=== PATIENT | female | born 1975 | race Caucasian/White ===

== ENCOUNTER 2017-02-19 14:56 | Emergency (ER) | payer SELFPAY ==
[2017-02-19 15:32] LABS: #Basophils 0.1 thou/uL (0.0-0.2); #Eosinphils 0.2 thou/uL (0.0-0.7); #Monocytes 0.5 thou/uL (0.11-0.59); %Basophils 0.9 % (0.0-1.0); %Eosinophils 2.6 % (0.0-10.0); %Lymphocytes 23.1 % (21.0-51.0); %Monocytes 5.9 % (0.0-10.0); Hematocrit 42.2 % (36.0-47.0); Mean Platelet Volume 7.3 fL (7.4-10.4); White Blood Cell (WBC) Count 8.8 thou/uL (4.8-10.8)
[2017-02-19] MEDS ORDERED: diphenhydrAMINE 50 MG/ML VIAL ONE (15:35)
[2017-02-19 15:54] LABS: ALT (SGPT) 58 U/L (8-55); AST (SGOT) 82 U/L (5-34); Alkaline Phosphatase 82 U/L (40-150); Anion Gap 13 mmol/L (10-20); BUN (Urea Nitrogen) 12 mg/dL (7.0-18.7); Bilirubin, Total Less than 0.2 mg/dL (0.2-1.2); Calc. Creatinine Clearance 0 mL/min (70-130); Calcium 9.3 mg/dL (7.8-10.44); Carbon Dioxide 22 mmol/L (22-29); Chloride 106 mmol/L (98-107); Estimated GFR-MDRD Greater than 90; Globulin 3.3 g/dL (2.4-3.5); Protein, Total 7.2 g/dL (6.0-8.3)
[2017-02-19] MEDS ORDERED: Metoclopramide HCl 10 MG/2 ML VIAL ONE (16:05)
--- NOTE | 2017-02-19 16:40 | CT ---
CT HEAD NONCONTRAST 02/19/17 HISTORY: Headache. Numbness. FINDINGS: There is no evidence of acute intracranial hemorrhage or infarct. Within the posterior body of the le ft lateral ventricle on axial image #17 is a rounded hyperdense focus measuring up to 0.9 cm greatest diameter. No symmetric lesion is apparent on the other side. There is no significant mass effect or shift of midline structures. IMPRESSION: Small hyperdense mass-like lesion within the left lateral ventricle, as detailed above. Please consid er nonemergent MRI brain, with and without gadolinium for better characterization. POS: LUCERO
[2017-02-19] MEDS ORDERED: Morphine 4 MG/ML VIAL ONE (16:46)
[2017-02-19 16:48] LABS: Troponin I Less than 0.010 ng/mL (< 0.028)
--- NOTE | 2017-02-19 17:18 | PDOC.EVN ---
Event Note - Event Note Event Note: Went to ER to assess patient. Discussed with neurosurgery service. They assessed and discussed with the patient. Patient is being discharged home, I did not assess the patient.
== END 2017-02-19 17:30 | disposition home or self-care (01) ==
LOC: ERS 14:56
DX: R51 Headache (principal); F17.210 Nicotine dependence, cigarettes, uncomplicated
CPT/HCPCS: 70450; 80053; 82553; 84484; 84703; 85025; 93005; 96374; 96375; J1200; J2270; J2765

== ENCOUNTER 2017-02-25 14:38 | Observation (INO) | payer OTHER, SELFPAY ==
[2017-02-25] MEDS ORDERED: Metoclopramide HCl 10 MG/2 ML VIAL ONE (17:14)
[2017-02-25] MEDS ORDERED: diphenhydrAMINE 50 MG/ML VIAL ONE (17:14)
[2017-02-25 17:23] LABS: #Basophils 0.1 thou/uL (0.0-0.2); #Eosinphils 0.2 thou/uL (0.0-0.7); #Lymphocytes 2.7 thou/uL (1.20-3.40); #Monocytes 0.6 thou/uL (0.11-0.59); #Neutrophils 6.2 thou/uL (1.40-6.50); %Basophils 0.6 % (0.0-1.0); %Eosinophils 2.3 % (0.0-10.0); %Lymphocytes 27.9 % (21.0-51.0); %Monocytes 6.1 % (0.0-10.0); Mean Platelet Volume 7.2 fL (7.4-10.4); Red Blood Cell (RBC) Count 4.12 mill/uL (4.20-5.40); White Blood Cell (WBC) Count 9.8 thou/uL (4.8-10.8)
[2017-02-25 17:30] LABS: PTT 31.7 SEC (22.9-36.1); Prothrombin Time 12.5 SEC (12.0-14.7)
[2017-02-25 17:43] LABS: Anion Gap 10 mmol/L (10-20); BUN (Urea Nitrogen) 19 mg/dL (7.0-18.7); Calc. Creatinine Clearance 0 mL/min (70-130); Calcium 9.1 mg/dL (7.8-10.44); Carbon Dioxide 24 mmol/L (22-29); Chloride 107 mmol/L (98-107); Estimated GFR-MDRD Greater than 90
[2017-02-25 17:50] LABS: Troponin I Less than 0.010 ng/mL (< 0.028)
--- NOTE | 2017-02-25 18:15 | CT ---
EXAM: NONCONTRAST HEAD CT 02/25/17 COMPARISON: 02/19/17 HISTORY: Headache. TECHNIQUE: Noncontrast head CT is performed from skull base through skull vertex. FINDINGS: No parenchymal hemorrhage. No extra-axial hematoma. No midline shift. Basilar cisterns are patent. Brain volume, age appropriate. Cortical archer-white matter differentiation is preserved. Ventricles and sulci are patent and symmetric. Stable hyperdensity in the left lateral ventricle, jeromy suring approximately 8 mm. No midline shift. Basilar cisterns are patent. Adequate aeration of the sinuses and mastoid air cells . Intact calvarium. IMPRESSION: Redemonstration of a hyperdense mass in the left lateral ventricle. Further interrogation with noneme rgent brain MRI is recommended. POS: LUCERO
[2017-02-25 22:09] LABS: Troponin I Less than 0.010 ng/mL (< 0.028)
--- NOTE | 2017-02-26 00:22 | CON ---
DATE OF CONSULTATION: 02/25/2017 HISTORY OF PRESENT ILLNESS: Ms. Purcell is a 41-year-old female who has a history of headaches and dizziness since 02/19/2017. She complains of passing out when going from sitting to standing position. is at bedside and reports multiple syncopal episodes in that fashion. She reports loss of consciousness x1 on 02/19/2017. Patient is a poor historian. Today, she presents with a headache that is dull and throbbing in nature. Symptoms are about the same since 02/19/2017. Neurosurgery was consulted because a CT was done on her brain that showed a left lateral ventricle lesion approximately [address] of the brain was also done on 02/19/2017 that showed the same lesion and is stable today. ALLERGIES: No known drug allergies. CURRENT MEDICATIONS: None. PAST MEDICAL HISTORY: No past medical history. PAST SURGICAL HISTORY: section x2. PSYCHIATRIC HISTORY: No previous psychiatric history. SOCIAL HISTORY: Patient drinks socially. Currently uses tobacco. Smokes 1 pack of cigarettes per day for the last 20 years. She currently abuses marijuana and infrequent drug use. REVIEW OF SYSTEMS: Eyes: The patient reports vision changes in the past week. She complains of blurry vision. Neurologic: She reports dizziness and headache. A 12-point review of system was completed and is otherwise negative unless stated in the above HPI. PHYSICAL EXAMINATION: VITAL SIGNS: Reviewed and stable. She is afebrile, slightly hypertensive. GENERAL: The patient appears nontoxic, is alert and oriented x4. GCS was 15 and appears stated age. HEENT: Head, normocephalic, atraumatic. Hearing intact. Moist mucous membranes. Trachea is midline. Eyes, pupils are equal and reactive to light. Extraocular muscles are intact. Sclerae are white, nonicteric. NECK: Normal range of motion. Trachea is midline. RESPIRATORY: The patient has bilateral symmetric chest rise, appears to have no shortness of breath. CARDIOVASCULAR: The patient has regular rate and rhythm. BACK: No distal cyanosis or clubbing noted. EXTREMITIES: Upper extremity, normal range of motion and normal motor strength. Lower extremity, normal range of motion and normal motor strength. NEUROLOGIC: Cranial nerves II through XII are grossly intact. Speech is fluent. She answers my questions appropriately. There are no focal motor or sensory deficits. Jay coma scale 15. Speech is clear and appropriate. PSYCHIATRIC: Normal affect, judgment is normal. ASSESSMENT: Ms. Maxine Purcell is a 41-year-old female who presents today with worsening headache and stable left lateral ventricle lesion approximately 8 mm in diameter. PLAN: Dr. Mosley and I have reviewed the history and images of Maxien Purcell. CT scan was reviewed and determined that the mass is not causing syncope. We will evaluate her outpatient in clinic for the left lateral ventricle mass. If there are any further questions or worsening neurologic condition while she is here in the hospital, please feel free to call. We will let the our colleagues on the medicine team do workup for syncopal episode and headache. RAMEZ
[2017-02-26] MEDS ORDERED: Acetaminophen 325 MG TAB PO PRN ×2 (00:30→01:04)
[2017-02-26] MEDS ORDERED: Ondansetron ODT 4 MG TAB SL PRN (00:30)
[2017-02-26] MEDS ORDERED: Ondansetron HCl/PF 4 MG/2 ML Vial IVP PRN ×2 (00:30→01:04)
[2017-02-26 01:01] LABS: Troponin I 0.013 ng/mL (< 0.028)
[2017-02-26] MEDS ORDERED: Sodium Chloride 0.9% 1,000 ML IV SCH (01:04)
[2017-02-26] MEDS ORDERED: HYDROcodone/Acetaminophen 10/325 mg Tablet PO PRN (01:04)
[2017-02-26] MEDS ORDERED: HYDROcodone/Acetaminophen 5/325 mg Tablet PO PRN (01:04)
[2017-02-26 01:53] VITALS: BMI 29.4
--- NOTE | 2017-02-26 05:54 | HP ---
PRIMARY CARE PHYSICIAN: None. CHIEF COMPLAINT: Headache and syncope. HISTORY OF PRESENT ILLNESS: Ms. Purcell is a 41-year-old white female with negative history, who presents to the ER the second time in a week. She was here one week ago for headaches and dizziness and some blurry vision. She had a CT scan here that showed a nonobstructing lateral ventricular cystic-type mass and she was arranged for outpatient followup. She continued to have bifrontal headache. She describes a band-like sensation over the front of her head, rated 10/10. She states that she feels dizzy in the sense that everything is spinning around her and still seems like she just cannot focus. She denies any double vision. The patient presented to the emergency department now after 6 days of her headache. No fevers or chills. No chest pain, cough, or shortness of breath. No nausea or vomiting. She had a repeat CT scan done today with noncontrast that showed the hypodense lesion in the left lateral ventricle to be stable. Neurosurgery was consulted and recommended placing on observation, getting an MRI, and Neurology was contacted. She states that she has had several spells over the last week where she has become unresponsive. She denies any bowel or bladder incontinence and no tongue biting until today. People that have witnessed her spells state there is no tonic clonic or jerking activity. She has no recollection of these events. PAST MEDICAL HISTORY: Brain mass as above. PAST SURGICAL HISTORY: Includes x2 remotely. HOME MEDICATIONS: None. ALLERGIES: NKDA. FAMILY HISTORY: Negative for clotting or bleeding disorder. No immune dysfunction, no cancer. SOCIAL HISTORY: There is a history of rare alcohol. She does smoke marijuana, the last time was a few months ago. Denies any IV drug use. She does smoke tobacco about 1 pack per day for the last 20 years. REVIEW OF SYSTEMS: A 10-point review of systems was performed, negative for all other systems except stated as per HPI. PHYSICAL EXAMINATION: VITAL SIGNS: Temperature is 97.7, pulse 71, blood pressure 159/90, respiratory rate 18, O2 sat 97% on room air. GENERAL: She is awake. She is alert. She is oriented x3. She is in no acute distress. She was initially sleeping comfortably and very, very hard and was difficult initially to arouse but was oriented x3 on arousal. HEENT: Normocephalic, atraumatic. Pupils equal and reactive bilaterally, mucosa is moist. There is no visible lesion, no thrush. She has a good conjugate gaze. NECK: Supple with no lymphadenopathy, JVD, or thyromegaly. LUNGS: Clear to auscultation bilaterally. No wheezing, no rales, no rhonchi. CARDIOVASCULAR: Normal S1 and S2. No S3 or S4. She has normal rate and regular rhythm. She has no audible murmur. ABDOMEN: Soft, nontender, nondistended. She has no masses, no organomegaly. EXTREMITIES: Show no cyanosis, no clubbing, no edema. SKIN: Warm, moist, with well perfused without any rashes or lesions. NEUROLOGIC: She had cranial nerves II through XII are grossly intact. She has no focal neurologic deficits. She has normal speech pattern and 5/5 strength. The sensation is intact. LABORATORY DATA: BMP is normal. Troponin I was negative. CKMB was 1.7. test was negative. INR is 0.9. CBC showed a white count of 9.8, hemoglobin 13.1, hematocrit of 39.0, platelets 298,000. RADIOGRAPHIC STUDIES: A CT of the brain as above. ASSESSMENT AND PLAN: 1. Syncopal episodes: Cardiogenic versus neurologic: We will place on the stroke unit, we will monitor on telemetry, we will follow up on Neurosurgery and Neurology recommendations. I have ordered an MRI with contrast to be done to better delineate her mass. 2. Brain mass: As above. Neurosurgery is seen and is following. 3. Headache: Symptomatic control. She did have some nausea that responded well to Reglan. We will continue Reglan and Zofran. [facility]
[2017-02-26 08:12] LABS: #Eosinphils 0.3 thou/uL (0.0-0.7); #Monocytes 0.6 thou/uL (0.11-0.59); #Neutrophils 4.1 thou/uL (1.40-6.50); %Basophils 0.5 % (0.0-1.0); %Eosinophils 3.7 % (0.0-10.0); %Monocytes 6.9 % (0.0-10.0); Hematocrit 38.9 % (36.0-47.0); Mean Platelet Volume 7.2 fL (7.4-10.4); Red Blood Cell (RBC) Count 4.08 mill/uL (4.20-5.40)
[2017-02-26 08:34] LABS: Anion Gap 10 mmol/L (10-20); BUN (Urea Nitrogen) 17 mg/dL (7.0-18.7); Calc. Creatinine Clearance 151 mL/min (70-130); Calcium 8.5 mg/dL (7.8-10.44); Carbon Dioxide 22 mmol/L (22-29); Chloride 111 mmol/L (98-107); Cholesterol 126 mg/dl (< 200 Desired); Estimated GFR-MDRD Greater than 90; LDL Cholesterol, Calculated 73 mg/dL
[2017-02-26] MEDS ORDERED: Famotidine 20 MG TAB PO SCH (09:00)
--- NOTE | 2017-02-26 09:20 | CON ---
DATE OF CONSULTATION: 02/26/2017 CONSULTING PHYSICIAN: Hospitalist service. IMPRESSION: 1. Persistent headache for the last week preceded by a syncopal episode likely secondary to migraine . 2. Past history of some orthostatic dizziness. 3. 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 PLAN: 1. MRI of the brain. 2. Migraine protocol. HISTORY OF PRESENT ILLNESS: Ms. Purcell is a 41-year-old white female who reports that she develop ed a bad headache last week. She had a brief syncopal episode while at home. She came to the emerge ncy room at that time and was evaluated. She was discharged home. She was noted to have a ventricul ar mass and was referred to Neurosurgery for evaluation. Neurosurgery felt that this issue was nonem ergent and not related to a syncopal episode. There is no evidence of intracerebral hemorrhage. Her vital signs did not show any evidence of fever. She is a bit hypertensive when she came in this roderick e. She reports the headache is primarily frontal and has a throbbing quality associated with some de gree of nausea, light sensitivity, sound sensitivity and dizziness. She notes that the headache has waxed and waned in severity over the last week. She does not report any headache this bad in the pas t. PAST MEDICAL HISTORY: Otherwise, negative. ALLERGIES: None. SOCIAL HISTORY: Unremarkable. FAMILY HISTORY: Noncontributory. REVIEW OF SYSTEMS: Negative for any focal neurologic symptoms. No history of seizures. PHYSICAL EXAMINATION: GENERAL: She is a well-nourished middle-aged woman sitting at the bedside, a bit irritable. VITAL SIGNS: Blood pressure 141/72, pulse 62, respirations 16, temperature 98.4. HEENT: Pupils equal and reactive. Conjunctivae clear. NEUROLOGIC: She is alert and appropriate. Her speech is fluent and clear. Exam is nonfocal. No ab normal movements were seen. SUMMARY: I suspect the ongoing headache, dizziness, and syncopal episode probably are migraine relat ed. We will start the migraine protocol and see how she responds.
[2017-02-26] MEDS ORDERED: Dihydroergotamine Mesylate 1 MG/ML AMP SLOW IVP PRN ×2 (09:37→11:17)
[2017-02-26] MEDS ORDERED: Dexamethasone 4 mg/ml Vial SLOW IVP SCH ×2 (09:45→11:30)
[2017-02-26] MEDS ORDERED: Metoclopramide HCl 10 MG/2 ML VIAL IVP PRN (11:16)
[2017-02-26 12:11] VITALS: TEMP 97.9
[2017-02-26 12:20] VITALS: BP 137/73
--- NOTE | 2017-02-26 12:44 | MRI ---
BRAIN MRI WITH AND WITHOUT CONTRAST: HISTORY: Syncopal episode. Hyperdense mass in the left ventricle. COMPARISON: None. TECHNIQUE: A brain MRI is performed with and without intravenous Gadolinium administration. Multisequential, mu ltiplanar imaging is performed. FINDINGS: No parenchymal hemorrhage. No extraaxial hematoma. No parenchymal mass, mass effect, or midline ling ft. Brain volume is age appropriate. Cortical archer white matter differentiation is preserved. Ventricles and sulci are patent and symmetric. No significant white matter hyperintensities in the axial T2 FLAIR sequence. Adequate aeration of the sinuses and mastoid air cells. No pathologic enhancement of the brain parenchyma. There is an intrinsic T1 isointense, T2 isointense, and FLAIR hypointense lesion involving the tool lapper hand ior aspect of the left lateral ventricle, corresponding to the previously noted hyperdense lesion on CT. The lesion measures 7 mm. On the post contrast images, there is evidence of enhancement. Enhan cement is slightly more prominent peripherally. The central component does have some enhancement. D ifferential considerations include an intraventricular meningioma. Additional intraventricular lesio ns are not appreciated. IMPRESSION: Left intraventricular lesion, as detailed above. Findings favor an intraventricular meningioma. POS: DAREK
--- NOTE | 2017-02-26 14:26 | PDOC.PN ---
- Subjective Encounter Start Date: 02/26/17 Encounter Start Time: 13:45 Subjective: Headache markedly improved after IV DHE. No other symptoms. - Objective Resuscitation Status: Resuscitation Status FULL:Full Resuscitation MAR Reviewed: Yes Vital Signs & Weight: Vital Signs (12 hours) Temp Pulse Pulse Pulse Pulse Resp BP 02/26/17 11:30 97.9 F 60 16 02/26/17 08:11 52 L 66 66 137/73 02/26/17 07:30 98.4 F 62 16 02/26/17 04:00 98.4 F 70 18 BP BP BP Pulse Ox 02/26/17 11:30 173/82 H 98 02/26/17 08:11 154/88 H 133/96 H 02/26/17 07:30 141/72 H 96 02/26/17 04:00 130/85 98 Weight Weight 175 lb 8 oz I&O: 02/25/17 02/26/17 02/27/17 06:59 06:59 06:59 Intake Total 335 Balance 335 Result Diagrams: 02/26/17 08:04 02/26/17 08:04 Phys Exam - Physical Examination Constitutional: NAD HEENT: moist MMs Respiratory: no wheezing, no rales, no rhonchi Cardiovascular: RRR, no significant murmur Gastrointestinal: soft, positive bowel sounds Neurological: non-focal, moves all 4 limbs Psychiatric: normal affect, A&O x 3 Dx/Plan (1) Migraine Code(s): G43.909 - MIGRAINE, UNSP, NOT INTRACTABLE, WITHOUT STATUS MIGRAINOSUS Status: Resolved Qualifiers: Intractability: intractable (2) Orthostatic dizziness Code(s): R42 - DIZZINESS AND GIDDINESS Status: Acute (3) Brain mass Code(s): G93.9 - DISORDER OF BRAIN, UNSPECIFIED Status: Acute - Plan cont current plan of care D/C home. F/u with Neuro and Neurosurgery * . - Discharge Day Encounter end time: 14:00
--- NOTE | 2017-02-26 19:23 | DIS ---
PRIMARY CARE PHYSICIAN: None. DIAGNOSES ON ADMISSION: 1. Syncopal episode. 2. Headache. 3. Brain mass. DIAGNOSES ON DISCHARGE: 1. Migraine headache. 2. Orthostatic dizziness. 3. Left posterior horn ventricular mass, likely benign in etiology. PERTINENT IMAGIN. CT of the brain showed a small hyperdense mass-like lesion with the left lateral ventricle. 2. MRI of the brain with gadolinium contrast showing a left ventricular lesion consistent with intra ventricular meningioma versus choroid plexus lesion. CONSULTATIONS: 1. Neurosurgery, Dr. Mosley. 2. Neurology, Dr. Huitron. SUMMARY OF HOSPITAL COURSE: This is a 41-year-old white female, who presents to the ER for the secon d time in a week for headache, dizziness, blurred vision, and possible syncopal episodes. She had a CT scan in the first time which showed above lesion, was sent home from the emergency room with clara w up with Neurosurgery. She had recurrence of her severe headache and neurologic symptoms and so cam e back into the emergency room. CT scan again showed the above lesion. The patient was put on obser vation in the hospital. Neurosurgery was consulted. They again stated this was not causing her head aches and that he would need outpatient followup and an MRI was ordered to further characterize with the above results. Dr. Huitron, Neurology was consulted. He determined these were migraine type hea daches, treated her with dexamethasone and DHE with resolution of her headache. She is doing well at the time of discharge and we are discharging her home. DISCHARGE MANAGEMENT: Discharged home. Follow up with Dr. Huitron in [address] Mosley in 3-4 weeks. ACTIVITY: As tolerated. DIET: Regular diet. The patient is to avoid daily caffeine or pain medicine intake to prevent more frequent headaches. DISCHARGE MEDICATIONS: 1. Esgic 1 tablet every 4 hours as needed for headache, 20 tablets dispensed. 2. We have given her metoclopramide 10 mg every 30 minutes, she can take up to 3 per day starting at the onset of headache along with some [id number] Benadryl to try and abort migraine headaches.
--- NOTE | 2017-03-20 13:49 | EKG ---
Test Reason : EMERGENCY EXAM Blood Pressure : / mmHG Vent. Rate : 061 BPM Atrial Rate : 061 BPM P-R Int : 132 ms QRS Dur : 092 ms QT Int : 432 ms P-R-T Axes : 049 049 047 degrees QTc Int : 434 ms Normal sinus rhythm Normal ECG Confirmed by BRET SILVA ([id number]), research editor AALIYAH BAKER ([id number] on 03/20/2017 1:48:53 PM Referred By: Confirmed By:BRET SILVA
== END 2017-02-26 16:12 | disposition home or self-care (01) ==
LOC: ERS 14:38 → 2SE 19:45 → UNDODISOB 02-26 13:04
PROVIDERS: ADMIT Internal Medicine Infectious Disease; ATTEND Internal Medicine Infectious Disease
DX: G43.909 Migraine, unspecified, not intractable, without status migrainosus (principal); R42 Dizziness and giddiness; G93.89 Other specified disorders of brain; F17.210 Nicotine dependence, cigarettes, uncomplicated; F12.10 Cannabis abuse, uncomplicated; Z98.890 Other specified postprocedural states
CPT/HCPCS: 36415; 70450; 70553; 80048; 80061; 81025; 82553; 84484; 84703; 85025; 85610; 85730; 93005; 96365; 96375; 96376; G0378; G8987-GO-CH; G8988-GO-CH; G8989-GO-CH; J1100; J1110; J1200; J2765

== ENCOUNTER 2017-06-28 15:00 | Outpatient (CLI) | payer SELFPAY | END 2017-06-28 15:01 | disposition home or self-care (01) | LOC: BICRAD 15:00 | PROVIDERS: ATTEND Family Medicine | DX: Z02.1 Encounter for pre-employment examination (principal) | CPT/HCPCS: 71046 ==

== ENCOUNTER 2017-10-12 17:08 | Emergency (ER) | payer SELFPAY | END 2017-10-12 21:03 | disposition home or self-care (01) | LOC: ERS 17:08 | DX: N64.4 Mastodynia (principal); Z79.899 Other long term (current) drug therapy | CPT/HCPCS: 99283 ==

== ENCOUNTER 2017-11-18 13:41 | Outpatient (CLI) | payer OTHER | END 2017-11-18 13:42 | disposition home or self-care (01) | LOC: BICMAMMO 13:41 | PROVIDERS: ATTEND Family Medicine | DX: N64.4 Mastodynia (principal) | CPT/HCPCS: 77066; G0279 ==

== ENCOUNTER 2018-07-18 09:22 | Emergency (ER) | payer BC, OTHER ==
[2018-07-18] MEDS ORDERED: hydrOXYzine 25 MG TAB ONE (10:36)
== END 2018-07-18 11:11 | disposition home or self-care (01) ==
LOC: ERS 09:22
DX: L25.9 Unspecified contact dermatitis, unspecified cause (principal); I10 Essential (primary) hypertension; F17.210 Nicotine dependence, cigarettes, uncomplicated; Z79.899 Other long term (current) drug therapy

== ENCOUNTER 2018-07-18 21:22 | Emergency (ER) | payer BC ==
[2018-07-18 22:01] LABS: #Eosinphils 0.1 thou/uL (0.0-0.7); #Lymphocytes 1.3 thou/uL (1.20-3.40); #Monocytes 0.3 thou/uL (0.11-0.59); #Neutrophils 11.8 thou/uL (1.40-6.50); %Basophils 0.1 % (0.0-1.0); %Eosinophils 0.9 % (0.0-10.0); %Lymphocytes 9.8 % (21.0-51.0); %Monocytes 2.4 % (0.0-10.0); %Neutrophils 86.7 % (42.0-75.0); Hemoglobin 14.7 g/dL (12.0-16.0); Mean Corpuscular HGB CONC 31.9 g/dL (32.0-36.0); Mean Corpuscular Hemoglobin 29.7 pg (27.0-31.0); Mean Corpuscular Volume 93.1 fL (78.0-98.0); Mean Platelet Volume 7.6 fL (7.4-10.4); Platelet Count 344 thou/uL (130-400); RBC Distribution Width 12.9 % (11.5-14.5); Red Blood Cell (RBC) Count 4.93 mill/uL (4.20-5.40); White Blood Cell (WBC) Count 13.6 thou/uL (4.8-10.8)
[2018-07-18 22:24] LABS: ALT (SGPT) 167 U/L (8-55); AST (SGOT) 64 U/L (5-34); Albumin 4.3 g/dL (3.5-5.0); Alkaline Phosphatase 143 U/L (40-150); Anion Gap 12 mmol/L (10-20); BUN (Urea Nitrogen) 21 mg/dL (7.0-18.7); Bilirubin, Total 0.2 mg/dL (0.2-1.2); Calc. Creatinine Clearance 0 mL/min (70-130); Calcium 9.5 mg/dL (7.8-10.44); Carbon Dioxide 19 mmol/L (22-29); Chloride 109 mmol/L (98-107); Estimated GFR-MDRD 74; Globulin 3.1 g/dL (2.4-3.5); Glucose 150 mg/dL (70-105); Potassium 4.4 mmol/L (3.5-5.1); Protein, Total 7.4 g/dL (6.0-8.3); Sodium 136 mmol/L (136-145)
--- NOTE | 2018-07-18 22:40 | CT ---
CT brain noncontrast: HISTORY: 42-year-old female status post syncope FINDINGS: There is no evidence of acute intra-axial or extra-axial hemorrhage. There is no midline shift or any other mass effect. There is no extra-axial fluid collection. There is no evidence of obstructive hydrocephalus. Calvarium is intact. IMPRESSION: No acute intracranial findings.
== END 2018-07-19 02:52 | disposition left against medical advice (07) ==
LOC: ERS 21:22
DX: R55 Syncope and collapse (principal); F17.210 Nicotine dependence, cigarettes, uncomplicated; I10 Essential (primary) hypertension; Z79.899 Other long term (current) drug therapy
CPT/HCPCS: 36415; 70450; 80053; 84484; 85025; 93005; 96360; 99282

== ENCOUNTER 2018-10-31 10:52 | Emergency (ER) | payer BC ==
[2018-10-31 12:33] LABS: #Eosinphils 0.3 thou/uL (0.0-0.7); #Lymphocytes 2.7 thou/uL (1.20-3.40); #Monocytes 0.6 thou/uL (0.11-0.59); #Neutrophils 6.4 thou/uL (1.40-6.50); %Basophils 0.2 % (0.0-1.0); %Eosinophils 3.1 % (0.0-10.0); %Lymphocytes 26.6 % (21.0-51.0); %Monocytes 6.1 % (0.0-10.0); Hemoglobin 12.8 g/dL (12.0-16.0); Mean Corpuscular HGB CONC 32.8 g/dL (32.0-36.0); Mean Corpuscular Hemoglobin 29.8 pg (27.0-31.0); Mean Platelet Volume 7.3 fL (7.4-10.4); Platelet Count 306 thou/uL (130-400); RBC Distribution Width 12.7 % (11.5-14.5); Red Blood Cell (RBC) Count 4.29 mill/uL (4.20-5.40)
[2018-10-31 12:57] LABS: Acetaminophen Less than 6.0 mcg/mL (10.0-30.0); Alcohol Less than 10 mg/dL (Less than 10); Salicylate Less than 8.0 mg/dL (15.0-30.0)
[2018-10-31 13:03] LABS: ALT (SGPT) 20 U/L (8-55); AST (SGOT) 18 U/L (5-34); Albumin 4.1 g/dL (3.5-5.0); Alkaline Phosphatase 95 U/L (40-150); Anion Gap 9 mmol/L (10-20); BUN (Urea Nitrogen) 15 mg/dL (7.0-18.7); Bilirubin, Total 0.2 mg/dL (0.2-1.2); CK (CPK) 141 U/L (29-168); Calc. Creatinine Clearance 0 mL/min (70-130); Calcium 9.3 mg/dL (7.8-10.44); Carbon Dioxide 28 mmol/L (22-29); Chloride 105 mmol/L (98-107); Estimated GFR-MDRD 81; Globulin 3.1 g/dL (2.4-3.5); Glucose 82 mg/dL (70-105); Protein, Total 7.2 g/dL (6.0-8.3); Sodium 138 mmol/L (136-145)
--- NOTE | 2018-10-31 13:11 | CT ---
CT Brain WO Con History: Altered mental status. Emergency exam. Comparison: CT brain June 2018 Findings: No acute hemorrhage or infarct. No midline shift or mass effect. Ventricular size and extra -axial CSF spaces are normal. Left lateral ventricular atria hyperdensity is unchanged in size from 2017. Impression: No acute intracranial abnormality.
[2018-10-31] MEDS ORDERED: Proparacaine 0.5% Opth 15 ML BOT ONE (13:32)
[2018-10-31 14:08] LABS: Bilirubin Negative (Negative); Blood, Urine Negative (Negative); Clarity Clear (Clear); Glucose, Urine (Dipstick) Normal (Negative); Leukocyte Negative Leu/uL (Negative); Nitrite Negative (Negative); Protein, Urine (Dipstick) Negative (Neg-Trace); RBC/HPF 0-3 HPF (0-3); Urobilinogen Normal mg/dL (Less than 2); WBC/HPF 0-3 HPF (0-3)
[2018-10-31 14:11] LABS: Amphetamine Detected (NotDetected); Barbiturates Screen Not Detected (NotDetected); Benzodiazepine Screen Not Detected (NotDetected); Cocaine Metabolite Screen Not Detected (NotDetected); Medtox Control Line Valid? VALID (VALID); Medtox Reader # READER 4; Methadone Not Detected (NotDetected); Methamphetamine Not Detected (NotDetected); Opiate Screen Not Detected (NotDetected); Oxycodone Screen Not Detected (NotDetected); Phencyclidine (PCP) Not Detected (NotDetected); THC/Cannabinoid Screen Detected (NotDetected); Tricyclic Screen Not Detected (NotDetected)
[2018-10-31 14:19] LABS: Pregnancy Test - Urine (BHCG) Negative (Negative); Pregu Control Background? CLEAR/WHITE (CLR/WHITE); Pregu Control Bar Appear? YES (CONTROL BAR); Specific Gravity 1.013 (1.002-1.036)
[2018-10-31 14:24] LABS: Bacteria/HPF 1+ HPF (None Seen)
[2018-10-31] MEDS ORDERED: Lisinopril 10 MG TAB ONE (15:09)
[2018-10-31] MEDS ORDERED: Ondansetron ODT 4 MG TAB ONE (20:48)
[2018-10-31] MEDS ORDERED: Acetaminophen 325 MG TAB ONE (20:48)
[2018-10-31] MEDS ORDERED: Ondansetron PF 4 MG/2 ML Vial ONE (22:21)
== END 2018-10-31 22:32 ==
LOC: ERS 10:52
DX: H53.8 Other visual disturbances (principal); R45.851 Suicidal ideations; I10 Essential (primary) hypertension; F41.9 Anxiety disorder, unspecified; F32.9 Major depressive disorder, single episode, unspecified; F17.210 Nicotine dependence, cigarettes, uncomplicated; Z79.899 Other long term (current) drug therapy
CPT/HCPCS: 36415; 70450; 80053; 80306; 80307; 81003; 81025; 82550; 84443; 85025; 93005; J2405; Q0162